=== PATIENT | male | born 1990 | race Hispanic/Latino ===

== ENCOUNTER 2017-06-24 16:04 | Emergency (ER) | payer OTHER ==
[~2017-06-24] VITALS: Ht 172.7 cm; Wt 88.2 kg
[2017-06-24 16:06] VITALS: BP 120/74; PULSE 64; RESP 16; O2SAT 99
--- NOTE | 2017-06-24 16:20 | ED.REPORT ---
HPI-Extremity Problem Lower Date of Service Jun 24, 2017 ED Provider: Juliette Davis History of Present Illness: cut on left lower thigh by utility knife, happened at home. Tdap last year. no primrary care. 12/05 Nursing Notes Stated Complaint: OPEN CUT Chief Complaint: Laceration Allergies: Coded Allergies: No Known Allergies (Unverified , 06/24/17) No Active Prescriptions or Reported Meds General Time Seen by MD: 16:19 Chief Complaint Thigh injury left Hx Obtained From: Patient Past Medical History Past Medical History Denies: Asthma, Hypertension Past Surgical History denies Smoking History Never Smoker Social History Alcohol Use: Denies alcohol use Drug Use: Denies drug use Occupation lives with family, work at [employer] 06/24/2017 Ambulatory Status Independent Review of Systems Basic Review of Systems Eyes: Vision NL, No discharge GI: No abdominal pain, No anorexia, No nausea, No vomiting : No frequency Hematologic: No bruising Allergy / Immune: No allergy Psychiatric: Normal thought content Physical Exam Initial Vital Signs Vital Signs (First) Date Time Temp Pulse Resp B/P Pulse Ox O2 Delivery O2 Flow Rate FiO2 06/24/17 16:06 36.7 64 16 120/74 99 Room Air Initial VS: Reviewed, Vital signs normal General/Constitutional: Well-developed, Well-nourished Head / Eyes: Atraumatic, Normocephalic, PERRL ENT: Mucous membranes moist, Conjunctiva normal, No scleral icterus Neck: Supple, Non-tender, Full range of motion Respiratory: Breath sounds normal, Clear to auscultation, No respiratory distress Cardiovascular: Regular rate & rhythm, Heart sounds normal, Intact distal pulses Abdomen / GI: Soft, Non-tender, No guarding, No rebound, No distention Back: No CVA tenderness Lymphatic: No lymphadenopathy Upper Extremities: Vascular intact, Neuro intact, No swelling, No tenderness Skin: Warm, Dry, No cyanosis Neurologic: Alert, Oriented, Nonfocal Psychiatric: Mood/affect normal, Behavior normal, Normal thought content 5 cm laceration on lateral side of left leg. No active bleeding Ankle / Foot: Atraumatic, Inspection NL, Full range of motion, No swelling General/Constitutional: Awake, Alert, No acute distress Respiratory / Chest: Atraumatic, Breath sounds NL, Breath sounds = bilat, No respiratory distress Cardiovascular: Heart rate NL, Regular rhythm, Heart sounds NL, No gallop Procedures Laceration Management Time: 16:30 Procedure Performed by: Allied health pract Consent / Setup / Site Prep: Informed consent provided, Consent from patient , Hand hygiene observed, Stand sterile technique Location of Wound: lateral left thigh Wound Length: 5 cm Local Anesthesia: Lidocaine 1%, 5cc, 27g needle Digital Block: No Wound Preparation: Normal saline Debridement: None Irrigation: 200 cc Repair Skin: ___ O (5), Nylon # Sutures - Skin: 10 Closure Layers: 1 Suture Technique: Simple Post-Procedure / Complications: Antibiotic oint applied, Dressing applied, No complications, Condition improved, Tolerated procedure well, Patient stable Re-Eval/Medical Decision Med Decision/Clinical Course 27 year old male presents for evualation of laceration on left lower thigh. No active bleeding. Injury happened at home. No sign of hemmorraghe or compartment syndrome. Discharge & Departure Impression: Primary Impression: Laceration Disposition: Home Patient Instructions: Laceration (ED) Additional Instructions: The wound was washed and repaired with 10 sutures. They need to stay in for 14 days. Use bacitracin to the site with each dressing change, Can use ibuprofen 800 mg if needed for any discomfort. I am sorry this happened. Referrals: [facility] EDSupervising Provider for APC: Trey Au MD copies to: [facility] Juliette Davis Jun 24, 2017 16:20
[2017-06-24 17:29] VITALS: BP 123/54; PULSE 65; RESP 12; O2SAT 98
== END 2017-06-24 17:31 | disposition home or self-care (01) ==
LOC: SED 16:04
DX: S71.112A Laceration without foreign body, left thigh, initial encounter (principal); W26.0XXA Contact with knife, initial encounter; Y93.89 Activity, other specified; Y92.009 Unspecified place in unspecified non-institutional (private) residence as the place of occurrence of the external cause; Y99.8 Other external cause status

== ENCOUNTER 2017-07-19 14:47 | Emergency (ER) | payer OTHER ==
[2017-07-19 14:55] VITALS: BP 116/71; PULSE 68; RESP 16; O2SAT 97
== END 2017-07-19 15:11 | disposition home or self-care (01) ==
LOC: SED 14:48
DX: Z48.02 Encounter for removal of sutures (principal)